=== PATIENT | female | born 1955 | race Caucasian/White ===

== ENCOUNTER 2022-11-21 06:33 | Outpatient (CLI) | payer MEDICARE, SELFPAY ==
--- NOTE | 2022-11-21 07:54 | W.ANESCHARGE ---
Anesthesia Charges Start Date/Time Anesthesia Start Date: 11/21/22 Anesthesia Start Time: 07:15 Stop Date/Time Anesthesia Stop Date: 11/21/22 Anesthesia Stop Time: 07:47
--- NOTE | 2022-11-21 10:20 | W.ANESCHARGE ---
Anesthesia Charges Start Date/Time Anesthesia Start Date: 11/21/22 Anesthesia Start Time: 07:15 Stop Date/Time Anesthesia Stop Date: 11/21/22 Anesthesia Stop Time: 07:47
== END 2022-11-21 06:34 | disposition home or self-care (01) ==
PROVIDERS: PCP Family Medicine; Visit Provider Internal Medicine Gastroenterology
DX: Z12.11 Encounter for screening for malignant neoplasm of colon (principal); K63.5 Polyp of colon; Z80.0 Family history of malignant neoplasm of digestive organs; Z86.010 Personal history of colon polyps
CPT/HCPCS: 00811; 45385; 88305; J2405; J2704

== ENCOUNTER 2023-05-01 07:30 | Outpatient (RCR) | payer MEDICARE, SELFPAY ==
--- NOTE | 2023-04-18 16:46 | PT.OPEX ---
PT [facility] PT [facility] Outpatient Eval Start: 04/18/23 16:13 Freq: Status: Active Protocol: Document 04/18/23 16:13 YANNI (Rec: 04/18/23 16:42 YANNI [id number]) E-signed By Gabby Ko DPT Physical Therapy Outpatient Evaluation Insurance Information Recert Due Date 07/17/23 Insurance Name Medicare B Medical Diagnosis cervicalgia polymyalgia rheumatica chronic pain Treating Diagnosis UBN pain, limited cervical ROM , impaired posture, limited tolerance for extended sitting activities, acute flare up of chronic UBN pain issues Subjective Subjective Patient reports chronic UBN pain for the last 30+ years with acute flare ups that are aggravated with extended sitting for reading, sewing, looking down positions. She reports years of fluctuating UBN pain, muscle tightness, and some headaches. States she had a cervical cyst removed approx 15 years ago. She had an MRI about 2 years ago and reports this showed abnormal curvature of her cervical spine. She's had PT previously but over 5 years ago. States she gets pain/sx relief with cervical traction, ROM, stretching, heating pad, icing, tylenol OA. She uses muscle relaxers with flare ups . Patient reports having a home cervical traction unit that she has been using 1-2x/ day, feels like she has been using it pretty regularly for the last 1 1/2 years. She's tried TENS treatment with PT in the past but does not have a home unit. States she lost her exercise handouts from prior PT and would like to get a new home program going. Her goal is to get some ROM/ stretching exercises, some pain management strategies and then continue on her own with a HEP. She is recovering from a recent flare up of pain /sx. Pain currently rated 2/ 10. Date of Last Physician Visit 03/29/23 Current Work Status Retired Precautions Treatment Precautions/Contraindications polymyalgia rheumatica, chronic UBN pain, cervical spine cyst surgically removed approx 15 years ago, per patient MRI shows abnormal curvature of cervical spine Assessment Assessment/Impression Patient is a 67 year old female with chronic UBN pain, limited cervical ROM, impaired posture, limited tolerance for extended sitting activities, acute flare up of chronic UBN pain issues. Per patient report, MRI a few years ago showed abnormal cervical spine curvature. Her cervical ROM is limited in all directions by general tightness, stiffness, pain. Patient with some hard end feels with cervical ROM, stating with her spine curvature her neck ROM is limited. Patient with tightness in bilateral UBN musculature, tight/stiff with scap mobility bilaterally. Impaired posture noted with forward head, rounded shoulders, uneven shoulder level related to abnormal spine curvature. She denies any UE radicular pain/sx. She is using a home cervical traction unit regularly to manage her chronic UBN pain/sx . Patient requesting ROM, stretching exercises and pain management strategies so she can continue with pain/sx management in her HEP. Discussed use of cervical traction and reviewed her prior use of TENS for pain/sx management. Recommended patient look into a home TENS unit as she reports this has been very helpful in the past but she never got a home unit. Reviewed with patient that pain/sx management with a home program to help prevent/ limited her flare ups would be important. Patient expressed understanding and is in agreement with this strategy of getting a good home program in place. Able to initiate HEP with ROM, stretching, posture focus this session. Patient to continue with use of cervical traction, ice, heat per her current pain management practice. She will look at getting a home TENS unit to add to her home management program. Patient has 2 follow up visits scheduled with goal of progressing with some TB strengthening exercises for her HEP. Patient states she will be traveling from June 03- July 05 so she is hoping to have a good program for pain/ sx management in place for her trip. Patient would benefit from skilled PT for pain/sx management, posture/body mechanics training, core/trunk /UBN strengthening, establishment of a HEP including self management strategies for her chronic UBN pain/sx. Plan of Care Rehabilitation Potential Good Physical Therapy Goals 1. Decrease/maintain mid/ upper back/neck pain at less than/equal to 3/10 with daily activities and with the progression of PT activities over the next 4-6 weeks. 2. Patient will be educated on posture/body mechanics and pain management strategies over the next 6-8 weeks for decreased stress on mid/upper back/neck and decreased mid/upper back/neck pain. 3. Improve core/trunk/UBN strength and posture over the next 10-12 weeks for improved posture, decreased stress on mid/upper back/neck, decreased mid/upper back/neck pain, and return to reading/ sewing activities with time constraints to avoid flare ups of pain/sx. 4. Patient will be I with HEP within 10 weeks for progression toward above goals, ongoing self management of pain/sx, ongoing self improvements in core/trunk/UBN strength, posture/body mechanics, and for return to her daily activities per PLF with limited/manageable flare ups of pain/sx. Coordination/Communication With Referral Source Treatment Plan/Direct Interventions Electrical Stimulation,Manual Therapy,Therapeutic Exercises Frequency/Duration 1x/week Patient Will Be Discharged From Therapy Completion of LTG(s),Skills Plateau,Independent w/HEP, Independently Progressing Evaluation Billing Untimed Code Treatment Minutes 22 Complexity Moderate Certification Information Initial Certification Date 04/18/23 Ending Certification Date 07/17/23 Provider Signature Shows Agreement With POC & Medical Necessity Physician Signature & Date Requested Please Sign/Date Here Physician Comment/Change : Physician NPI Number #
== END 2023-08-29 23:59 | disposition home or self-care (01) ==
PROVIDERS: PCP Family Medicine; Visit Provider Family Medicine
DX: M35.3 Polymyalgia rheumatica (principal); M54.2 Cervicalgia; G89.29 Other chronic pain; Z74.09 Other reduced mobility; R29.898 Other symptoms and signs involving the musculoskeletal system; R29.3 Abnormal posture; Z51.89 Encounter for other specified aftercare
CPT/HCPCS: 97110; 97162

== ENCOUNTER 2024-07-03 11:32 | Emergency (ER) | payer MEDICARE, SELFPAY ==
[2024-07-03] VITALS (26 sets, daily range): BP systolic 137–184; BP diastolic 72–97; PULSE 61–83; RESP 6–30; TEMP 36.5; O2SAT 97–100
--- OUTSIDE RECORDS SUMMARY | 2024-07-03 11:34 | XMS_ITS | Encounter Summary ---
Author Organization [facility] Address [address] [place] [id number] Care Team Providers Care Systems Support Engineer Name Role Phone Ching Wilson MD Primary Care Provider [phone] Encounter Details Date Type Department Care Team (Late st Contact Info) Description 08/29/2018 [facility] [address] [facility] [place] [address] Dudley Mckeon MD [address] [place] [address] [employer] [employer] Social History Tobacco Use Types Packs/Day Years Used Date Smoking Tobacco: Never Assessed Comments Unknown Sex and Gender Information Value Date Recorded Sex Assigned at Not on file Legal Sex Female 5:06 AM CDT Gender Identity Not on file Sexual Orientation Not on file documented as of this encounter Plan of Treatment Upcoming Encounters Date Type Department Care Team (Late st Contact Info) Description 07/10/2024 1:00 PM CDT Appointment Rheumatology at [facility] [address] [id number] Maritza Orlando MD [address] [place] [address] documented as of this encounter Visit Diagnoses Not on filedocumented in this encounter Care Teams Systems Support Engineer Relationship Specialty Start Date End Date Ching Wilson MD [address] [place] [address] PCP - General Family Practice 08/06/18 documented as of this encounter
--- OUTSIDE RECORDS SUMMARY | 2024-07-03 11:34 | XMS_ITS | Clinical Summary ---
Author Organization [facility] Address [address] [place] [address] Care Team Providers Care Customer Marketing Manager Name Role Phone Ching Wilson MD Primary Care Provide r Maritza Orlando MD Unavailable [phone] Allergies Active Allergy Reactions Criticality Noted Date Comments Amoxicillin-Pot Clavulanate Nausea Only,Itching High 04/19/2017 Sulfa (Sulfonamide Antibiotics) Rash 06/2006 Medications folic acid 1 mg tablet 2 Active methotrexate (RHEUMATREX) 2.5 mg tabletIndications: PMR (polymyalgia rheumatica) (HC) Take 4 tablets once a week. 0 3 Active valACYclovir (VALTREX) 500 mg tabletIndications: Herpes simplex virus (HSV) infection Take 1 Tablet (500 mg) by mouth once daily. 90 Tablet 3 4 Active levothyroxine (SYNTHROID) 100 mcg tabletIndications: Other specified hypothyroidism Take 1 Tablet (100 mcg) by mouth before breakfast. 90 Tablet 3 4 Active cyclobenzaprine (FLEXERIL) 10 mg tabletIndications: Acute neck pain Take 1 Tablet (10 mg) by mouth 3 times daily if needed for Muscle Spasm. 60 Tablet 5 Active oxyCODONE (ROXICODONE) 5 mg immediate release tabletIndications: Acute neck pain Take 1 Tablet (5 mg) by mouth 2 times daily if needed for Pain. 12 Tablet 5 Active azelaic acid 15 % gelIndications:Ros acea Apply topically to face twice daily. Start every 72 hours and slowly increase to twice daily as tolerated. 50 g 2 5 Active metroNIDAZOLE 0.75 % creamIndications:R osacea Apply topically to face twice daily. 45 g 2 5 Active sertraline (Zoloft) 50 mg tabletIndications: Adjustment disorder with depressed mood Take 1 Tablet (50 mg) by mouth once daily. 90 Tablet 3 5 Active Active Problems Problem Noted Date Diagnosed Date PMR (polymyalgia rheumatica) 03/14/2023 Rupture of implant of left breast 08/31/2018 Overview (07/11/2023): Added automatically from request for surgery [id number] Capsular contracture of breast implant 9 Overview (07/11/2023): Added automatically from request for surgery [id number] Rotator cuff impingement syndrome, right 018 Osteoarthritis of glenohumeral joint, left 12/25 Personal history of colonic polyps 09/28/2012 Overview (11/23/2022): Colonoscopy 09/2012 normal, repeat in 5 years Colonoscopy 09/2017 polyp, repeat in 5 years Colonoscopy 11/2022 TA, repeat in 5 years, propofol [facility] arthritis, thumb, degenerative 11/23/2011 Overview (11/23/2011): bilateral Carpal tunnel syndrome 01/07/2010 Cervical spinal stenosis 11/30/2009 Herpes simplex without mention of complication 1 03/10/2008 Displacement of cervical int ervertebral disc without myelopathy 03/28/2007 Unspecified hypothyroidism 07/25/2006 Rosacea 07/25/2006 Multiple sclerosis 07/25/2006 Overview (07/25/2006): Dr. Sanchez Encounters Date Type Department Care Team Description 07/03/2024 Nurse Triage [facility] [address] [place] [address] Ching Wilson MD Neurologic Problem 05/22/2024 Refill [facility] [address] [place] [address] Ching Wilson MD Refill Request (Azelaic Acid, Metronidazole) from Last 3 Months Immunizations Immunization Administration Dates Next Due AMB INFLUENZA IIV3 (AGE 65+ YRS) PF (Flu Clinic Only) 12/26/2018 AMB Influenza, IIV4 PF (=>6 mos Flulaval,Fluzone Fluarix)(Flu Clinic Only) 11/07/2013 Amb Influenza, Inactivated A IIV4 (Age 65+ Years) Preserv Free 11/18/2019 COVID-19 VACCINE SPIKEVAX (M ODERNA 50MCG/0.5ML) 12YO+ PFS 11/23/2022 COVID-19 vaccine (Pfizer-Bio NTech 30mcg/0.3mL) 12YO+ BIVALENT PF, MDV 07/14/2022,11/10/2021 COVID-19 vaccine (Pfizer-Bio NTech 30mcg/0.3mL) 12YO+ EFE-SUCROSE PF, MDV 05/24/2021 COVID-19 vaccine (Pfizer-Bio NTech 30mcg/0.3mL) PF, MDV 11/30/2020,04/24/2020,04/05/2020 DTaP 07/16/2010 HepA-HepB (Twinrix) 07/17/2009,02/10/2009,2008 Inactivated Polio Vaccine 01/23/2009 Influenza A (H1N1), Inactiva monika (Age >=3 Years) 01/23/2009 Influenza, IIV3 (Age >=3 years) 10/31/19 13,10/14/2011,11/16/2010,12/04,11/11/2008,12/31/2004,12/03/2002 Influenza, IIV4 02/02/2018,11/14/2016,11/10/2014 Influenza, Inactivated AIIV4 (Age 65+ Years) Preserv Free 11/23/2022,11/10/2021,11/30/2020 Influenza, Inactivated IIV3 (Age 65+ Years) Preserv Free 10/28/2023 Pneumococcal Conj 20-valent (Prevnar 20) 07/05/2022 Pneumococcal Poly,23-Valent (Pneumovax) 01/24/2020,10/09/2014,03/19/1999 RSV, Recombinant ADJ Reconst ituted (Arexvy 120MCG/0.5mL) 10/19/2023 Td (Age >=7 Years) 10/30/2016,02/07/2000 Tdap 11/09/2020,10/14/2011 Typhoid (injectable) 10/09/2014 Typhoid (oral) 01/23/2009 Yellow Fever 11/10/2014 Zoster (Shingrix-RZV, recombinant) 01/02/2023, Family History Medical History Relation Name Comments Cancer Brother 6 prostate, lymph nena, skin cancer (aggressive) Cancer-prostate Father Psychiatric illness Father Depressi on Cancer-breast Maternal Aunt Heart Disease Maternal Aunt Cancer-breast Mother 70's Osteoporosis Mother Other Mother , age 87 Psychiatric illness Mother Depressi on Cancer-breast Sister 1 Cancer-colon Sister 5 mid to late 50' s Osteoporosis Sister 6 Cancer-breast Sister 7 48 years old d iagnosed w stage 3 Relation Name Status Comments Brother 1 Alive Brother 2 Alive Brother 3 Alive Brother 4 Alive Brother 5 Alive Brother 6 Father Maternal Aunt Maternal Grandfather Maternal Grandmother Mother Alive Paternal Grandfather Paternal Grandmother Sister 1 Alive Sister 2 Alive Sister 3 Alive Sister 4 Alive Sister 5 Sister 6 Sister 7 Social History Tobacco Use Types Packs/Day Years Used Date Smoking Tobacco: Former Cigarettes 0.5 20 0 02/07/1972 - 02/07/1992 Smokeless Tobacco: Never Tobacco Cessation:Counseling Given: Yes Alcohol Use Standard Drinks/Week Comments Yes 3 (1 standard drink = 0.6 oz pur e alcohol) wine 3-4 times per week PHQ-2 Answer Date Recorded PHQ-2 TOTAL SCORE 4 05/22/2024 Social Connections Answer Date Recorded Do you often feel lonely or isolated from those around you? 0 07/11/2023 Financial Resource Strain Answer Date R ecorded Difficulty of Paying Living Expenses 3 07/11/2023 Difficulty of Paying Living Expenses Not on file 07/11/2023 Food Insecurity Answer Date Recorded Do you worry your food will run out before you are able to buy more? 1 07/11/2023 Transportation Needs Answer Date Record ed Does lack of transportation keep you from medica l appointments? 1 07/11/2023 Does lack of transportation keep you from work, meetings or getting things that you need? 1 07/11/2023 Housing Stability Answer Date Recorded What is your housing situation today? 1 07/11/2023 Utilities Answer Date Recorded Do you have trouble paying f or utilities (for example, heat, electricity, water, phone)? 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 Not on file Not on file Obstetrics History Para Term AB IAB SAB Ectopic Multiple Livin g Live Births 0 0 0 0 0 0 0 0 0 2 Last Filed Vital Signs Vital Sign Reading Time Taken Comments Blood Pressure 152/91 03/13/2024 9:16 AM ROLLER MILL TENDER Pulse 70 03/13/2024 9:16 AM ROLLER MILL TENDER Temperature 37.1 C (98.8 F) 07/11/2023 9:02 AM CDT Respiratory Rate 18 11/25/2019 5:27 PM CDT Oxygen Saturation 100% 03/13/2024 9:16 AM ROLLER MILL TENDER Inhaled Oxygen Concentration - - Weight 52.2 kg (115 lb) 12/08/2023 8:36 AM CDT Height 151.8 cm (4' 11.75) 12/08/2023 8:36 AM C DT Body Mass Index 22.65 12/08/2023 8:36 AM CDT Plan of Treatment Health Maintenance Due Date Last Done Comments COVID-19 vaccine series (9 - Pfizer risk season) 2024 10/28/2023, 11/23/2022, 07/14/2022, Additional history exists Mammogram for age 45-75 11/29/2024 11/30/19 24, 06/09/2022, 05/06/2021, Additional history exists BMI (ht and wt on same day) for age 18+ 12/07/2024 12/08/2023, 07/05/2022, 06/07/2021, Additional history exists Medicare Wellness for age 65+ 12/08/2024, 07/05/2022, 05/06/2021, Additional history exists Depression screening for age 12+ 05/22/2025 05/22/2024, 12/11/2023, 12/08/2023, Additional history exists Colonoscopy through age 75 11/22/202711/21, 11/21/2022, 09/11/2017, Additional history exists Lipids for age 45-75 12/07/2028 12/08/2023, 07/05/2022, 05/04/2020, Additional history exists Tetanus booster 11/09/2030 11/09/2020, 10/08, 10/14/2011, Additional history exists Hepatitis B series for 19+ Completed 07/17, 02/10/2009, 01/07/2009 Hepatitis C screening for ag e 18-79 Completed 06/28/2018 Tdap Completed 11/09/2020, 10/14/2011 DEXA/DXA scan for age 65+ Completed 2021, 02/26/2019, 10/18/2011, Additional history exists Pneumococcal series for age 50+ Completed 07/05/2022, 01/24/2020, 10/09/2014, Additional history exists Zoster (shingles) series for age 50+ Completed 01/02/2023, 09/15/2022 RSV vaccine for adults or Completed 10/19/2023 Influenza Vaccine Completed 10/28/2023, , 11/10/2021, Additional history exists Procedures Procedure Name Priority Date/Time Associated Diagnosis Comments LIPID PANEL W REFLEX MEASURED LDL Routine 12/08/2023 9:27 AM CDT Lipid screening XR MAMMO CAMERON BILAT SCREEN Routine 11/30/2023 7:59 AM CDT Encounter for screening mammogram for malignant neoplasm of breast SCAN-COLONOSCOPY 11/21/2022 12:0 0 AM CDT XR DXA BONE DENSITY 2 SITES AXIAL Routine 01/20/2022 9:50 AM ROLLER MILL TENDER Post-menopausal ANTI HCV Routine 06/28/2018 3:10 PM CDT Routine screening for STI (sexually transmitted infection) from Last 3 Months or Most Recently Relevant to Health Maintenance Results * (ABNORMAL) LIPID PANEL W REFLEX MEASURED LDL (12/08/2023 9:27 AM CDT) CHOLESTEROL, TOTAL 244(H) <200 mg/dL [facility] HDL CHOLESTEROL 87 > OR = 50 mg/dL [facility] TRIGLYCERIDES 110 <150 mg/dL [facility] LDL-CHOLESTEROL 135(H) mg/dL (calc) [facility] Comment: Reference range: <100 Desirable range <100 mg/dL for primary prevention; <70 mg/dL for patients with CHD or diabetic patients with > or = 2 CHD risk factors. LDL-C is now calculated using the Alfredo-Jing calculation, which is a validated novel method providing better accuracy than the Friedewald equation in the estimation of LDL-C. Alfredo SS et al. MATTHEW. 2013;310(19): 9917-5706 (http://education.GeniusMatcher/faq/UQL830) CHOL/HDLC RATIO 2.8 <5.0 (calc) [facility] NON HDL CHOLESTEROL 157(H) <130 mg/dL (calc) [facility] Comment: For patients with diabetes plus 1 major ASCVD risk factor, treating to a non-HDL-C goal of <100 mg/dL (LDL-C of <70 mg/dL) is considered a therapeutic option. Blood BLOOD SPECIMEN / Unknown 12/08/2023 9:27 AM CDT 12/08/2023 9:27 AM CDT us Ching Wilson MD CHEMISTRY Final Result [email or web address] [facility] [address] [place] [address], [facility] [address] [place] [address] * XR MAMMO CAMERON BILAT SCREEN (11/30/2023 7:59 AM CDT) Anatomical Region Laterality Modality BREASTS, Breast Left, Breast Right Bilateral Mammography Impressions 11/30/2023 3:43 PM CDT There is no radiographic evidence for malignancy. Recommend annual mammograms. MAMMOGRAM ASSESSMENT: ACR 1 Negative PATIENTS: You will also receive a letter with your examination results in an easy to read format. If you have questions about your results, please contact your referring provider. Narrative 11/30/2023 3:43 PM CDT For Patients: As a result of the Cures Act, medical imaging exams and procedure reports are released immediately into your electronic medical record. You may view this report before your referring provider. If you have questions, please contact your health care provider. XR MAMMO CAMERON BILAT SCREEN [[id number]] CLINICAL HISTORY: This is an asymptomatic 68 y.o. patient. INDICATION FOR EXAM: Mammogram Screening. TECHNIQUE: CC & MLO views were obtained. This study was evaluated with the assistance of Computer-Aided Detection. Breast Tomosynthesis was used in interpretation. COMPARISON FILM: Yes 06/09/22 [employer] 05/06/21 [facility] FINDINGS: There are scattered areas of fibroglandular density. There are no dominant masses, suspicious micro calcifications or areas of architectural distortion. Ching Wilson MD MAMMO Final Result * SCAN-COLONOSCOPY (11/21/2022 12:00 AM CDT) us [employer] OTHER Final Result * XR DXA BONE DENSITY 2 SITES AXIAL (01/20/2022 9:50 AM ROLLER MILL TENDER) Anatomical Region Laterality Modality Spine, HIPS, HIPL, HIPR Other Impressions 01/24/2022 4:38 PM ROLLER MILL TENDER Normal bone density. RECOMMENDATIONS: The National Osteoporosis Foundation recommends pharmacologic treatment for patients with T-scores of -2.5 or less, patients with prior history of fragility fractures, or patients with 10-year probability of greater than 3% at hips or greater than 20% of suffering major osteoporotic fractures. Recommend continued optimization of calcium and vitamin D intake through dietary means and/or supplementation and regular exercise. Repeat scan recommended in 3-5 years. Krista Smith PA-C [facility] 01/24/2022 Narrative 01/24/2022 4:38 PM ROLLER MILL TENDER For Patients: Results are automatically released to your [facility] account once available, in compliance with federal regulations. This means that you may see your results before your provider has had a chance to review them. Please allow 2-3 business days for your provider to comment on the results. XR DXA Bone Mineral Density (BMD) EXAM LOCATION: [address] [address] PATIENT NAME: Zelda Cortes DATE OF : 1955 EXAM DATE: 01/20/2022 REQUESTING PROVIDER: Referring, Provider GENDER AT : female HEIGHT: 5' (06/07/2021) WEIGHT: 111 lb (06/07/2021) MENOPAUSAL STATUS: Postmenopausal RACE/ETHNICITY: White RISK FACTORS: Smoking (prior), Steroid Medication (non-topical), Weight < 127 lbs. 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 It is not possible to compare data generated on one scanner to data from another because there are not standards in DXA equipment. This applies even if the two scanners are made by the same inventory clerk. PROCEDURE: Dual-energy x-ray absorptiometry performed with routine technique. Reporting is completed in the form of a T-score. The T-score represents the standard deviation from peak bone mass based on young healthy adult. A Z-score is used for diagnosis in premenopausal women, and for men under the age of 50. FINDINGS: RESULT LUMBAR SPINE L1 - L4 BMD: 1.308 g/cm2 T-Score: + 1.1 Z-Score: + 3.2 Change from prior in 2011: Decrease 17.3%. RESULTS FEMUR Left femoral neck BMD: 1.076 g/cm2 T-Score: + 0.3 Z-Score: + 2.2 Change from prior in 2020: Decrease 5.0%. Right femoral neck BMD: 1.080 g/cm2 T-Score: + 0.3 Z-Score: + 2.2 Change from prior in 2020: Decrease 8.2%. Left hip BMD: 1.083 g/cm2 T-Score: + 0.6 Z-Score: + 2.3 Change from prior in 2020: Decrease 7.0%. Right hip BMD: 1.091 g/cm2 T-Score: + 0.7 Z-Score: + 2.4 Change from prior in 2020: Decrease 7.9%. WHO criteria: Normal: T-score at or above -1 SD Osteopenia: T-score between -1.1 and -2.4 SD Osteoporosis: T-score at or below -2.5 SD us Provider Referring DEXA Final Result * ANTI HCV (06/28/2018 3:10 PM CDT) HEPATITIS C ANTIBODY Non-React rahel Non-React rahel 06/28/2018 8:31 PM CDT [facility] [employer] [facility] Comment:Antibodies to HCV no t detected; does not exclude the possibility of exposure to HCV. Blood BLOOD SPECIMEN / Unknown Venipuncture / Unknown 06/28/2018 3:10 PM CDT 06/28/2018 3:10 PM CDT us Ching Wilson MD SEND OUTS Final Result [facility] [employer] [facility] [address] [place] [address], from Last 3 Months or Most Recently Relevant to Health Maintenance Insurance MEDICARE PART B HB ONLY MEDICARE PART A HB ONLY BLUE [employer] BLUE MR PB ONLY Advance Directives * Full Code (Latest Code Status on File) Date Activated Date Inactivated Comments 12/22/2009 8:03 PM 12/23/2009 3:29 PM * Full Code Date Activated Date Inactivated Comments 12/22/2009 9:54 AM 12/22/2009 6:51 PM Care Teams Customer Marketing Manager Relationship Specialty Start Date End Date Ching Wilson MD [address] [place] [address] PCP - General 07/26/06 Maritza Orlando MD [address] [place] [address] Rheumatology 03/14/23
--- OUTSIDE RECORDS SUMMARY | 2024-07-03 11:35 | XMS_ITS | Encounter Summary ---
[facility] Organization [facility] Address [address] [place] [address] Care Team Providers Care Electric Meter Technician Name Role Phone Ching Wilson MD Primary Care Provider [phone] Encounter Details Date Type Department Care Team (Late st Contact Info) Description 11/02/2018 Consent for Procedure/Treatme nt [facility] Department INFORMED CONSENT RECORD Social History Tobacco Use Types Packs/Day Years Used Date Smoking Tobacco: Former Cigarettes Q uit: 10/17/1985 Smokeless Tobacco: Never Alcohol Use Standard Drinks/Week Comments Yes 0 (1 standard drink = 0.6 oz pur e alcohol) Comments Unknown Sex and Gender Information Value Date Recorded Sex Assigned at Not on file Legal Sex Female 5:06 AM CDT Gender Identity Not on file Sexual Orientation Not on file documented as of this encounter Plan of Treatment Upcoming Encounters Date Type Department Care Team (Late st Contact Info) Description 07/10/2024 1:00 PM CDT Appointment Rheumatology at [facility] [address] [id number] Maritza Orlando MD [address] [place] [address] documented as of this encounter Visit Diagnoses Not on filedocumented in this encounter Care Teams Electric Meter Technician Relationship Specialty Start Date End Date Ching Wilson MD [address] [place] [address] PCP - General Family Practice 08/06/18 documented as of this encounter
--- OUTSIDE RECORDS SUMMARY | 2024-07-03 11:35 | XMS_ITS | Clinical Summary ---
Author Organization [facility] Address [address] [place] [address] Care Team Providers Care Compliance Manager Name Role Phone Ching Wilson MD Primary Care Provider [phone] Source Comments You are receiving this document as you are listed as the primary care provider,follow-up provider, or the patient has been referred to you for consultation.This is in compliance with the Medicare andMedicaid EHR Incentive Program,which states Providers who transition their patient to another setting of careor provider of care or refers their patient to another provider of care shouldprovide summary care record for each transition of care or referral. Filement Allergies Active Allergy Reactions Criticality Noted Date Comments Amoxicillin-Pot Clavulanate Itching,Nausea High 04/06 Medications levothyroxine (SYNTHROID) 125 MCG tablet Take 1 Tablet (125 mcg) by mouth daily. Active valACYclovir (VALTREX) 500 MG tablet Take 1 Tablet (500 mg) by mouth. Active azelaic acid (FINACEA) 15 % gel Apply 1 Application topically daily. 3 Active metroNIDAZOLE (METROCREAM) 0.75 % cream Apply 1 g topically daily. Active folic acid 1 MG tablet Take 1 Tablet (1 mg) by mouth daily. 90 Tablet 3 4 09/06/19 25 Active methotrexate 2.5 MG tablet Take 4 tablets by mouth once weekly. 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 Overview (09/04/2023): DA reviewed: on MTX for PMR Polymyalgia rheumatica 09/04/2023 Capsular contracture of breast implant 9 Overview (08/31/2018): Added automatically from request for surgery [id number] Rupture of implant of left breast 08/31/2018 Overview (08/31/2018): Added automatically from request for surgery [id number] Encounters Date Type Department Care Team Description 05/09/2024 Refill Rheumatology at [address] [address] Maritza Orlando MD Refill (methotrexate 2.5 MG tablet [Pharmacy Med Name: Methotrexate Sodium 2.5mg Tablet]) 04/27/2024 Refill Rheumatology at [address] [address] Maritza Orlando MD Refill (methotrexate 2.5 MG tablet [Pharmacy Med Name: Methotrexate Sodium 2.5mg Tablet]) from Last 3 Months Social History Tobacco Use Types Packs/Day Years Used Date Smoking Tobacco: Former Cigarettes Q uit: 10/17/1985 Smokeless Tobacco: Never Alcohol Use Standard Drinks/Week Comments Yes 3 (1 standard drink = 0.6 oz pur e alcohol) Comments No Sex and Gender Information Value Date Recorded Sex Assigned at Not on file Legal Sex Female 5:06 AM CDT Gender Identity Not on file Sexual Orientation Not on file Last Filed Vital Signs Vital Sign Reading Time Taken Comments Blood Pressure 113/71 09/06/2023 9:32 AM CDT Pulse 78 09/06/2023 9:32 AM CDT Temperature 35.3 C (95.5 F) 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 Respiratory Rate 18 11/02/2018 3:30 PM CDT Oxygen Saturation 93% 11/02/2018 3:30 PM CDT Inhaled Oxygen Concentration - - Weight 50.8 kg (112 lb) 09/06/2023 9:32 AM CDT Height 151.1 cm (4' 11.5) 07/29/2021 12:55 PM C DT Body Mass Index 22.24 07/29/2021 12:55 PM CDT Plan of Treatment Upcoming Encounters Date Type Department Care Team (Late st Contact Info) Description 07/10/2024 1:00 PM CDT Appointment Rheumatology at [facility] [place] [address] [place] [address] [place] [address] Maritza Orlando MD [address] [place], [place] [id number] Health Maintenance Due Date Last Done Comments Colon Cancer Screening Plan Due 1955 Hep C Screening (Preventive Services) 1955 Cholesterol 1998 COVID-19 Vaccine ( season) 2023 11/23/2022, 07/14/2022, 11/10/2021, Additional history exists Mammogram 11/29/2024 11/30/2023, 05/2022, 05/06/2021, Additional history exists Medicare Annual Wellness Visit 12/07/2024 12/08/2023, 07/05/2022, 05/06/2021, Additional history exists RSV Vaccine (1 - 1-dose 75+ series) 2028 DTaP/Tdap/Td Vaccine (4 - Tdap) 11/09/2030 11/09/2020, 10/14/2011, 07/16/2010 IPV (Polio) Vaccine Aged Out 01/23/2009 No longe r eligible based on patient's age to complete this topic HepA Vaccine Aged Out 07/17/2009, 06/2009, 01/07/2009 No longer eligible based on patient's age to complete this topic Dexa Completed 01/20/2022, 01/06, 02/26/2019, Additional history exists Pneumococcal Vaccine 50+ Yrs Completed , 01/24/2020, 10/09/2014, Additional history exists Zoster/Shingles Vaccine Completed 01/02/2023, 09/15 Influenza Vaccine Completed 10/28/2023, , 11/10/2021, Additional history exists HepB Vaccine Aged Out No longer eligi ble based on patient's age to complete this topic Hib Vaccine Aged Out No longer eligi ble based on patient's age to complete this topic MCV4 Vaccine Aged Out No longer eligi ble based on patient's age to complete this topic Meningococcal B Vaccine Aged Out No l onger eligible based on patient's age to complete this topic Insurance [facility] BLUE MEDICARE MANAGED CARE [facility] Care Teams Compliance Manager Relationship Specialty Start Date End Date Ching Wilson MD [address] [place] [address] PCP - General Family Practice 08/06/18
--- NOTE | 2024-07-03 11:46 | CRLHL7_ITS ---
For Patients: As a result of the Century Cures Act, medical imaging exams and procedure reports are released immediately into your electronic medical record. You may view this report before your referring provider. If you have questions, please contact your health care provider. INDICATION: Acute stroke. TECHNIQUE: CTA neck with contrast bolus tracking, 3D angiographic rendering using maximum intensity projection (MIP) and images permanently archived. FINDINGS: There is no significant carotid artery stenosis or dissection. There is no significant vertebral artery stenosis or dissection. The soft tissues of the neck are within normal limits. Degenerative changes are noted in the cervical spine. IMPRESSION: No significant carotid or vertebral artery stenosis or dissection. Please note that all CT scans at this facility use dose modulation, iterative reconstruction, and/or weight-based dosing when appropriate to reduce radiation dose to as low as reasonably achievable. Dictated by Javan Hood MD @ 07/03/2024 1:51:54 PM (Electronically Signed)
--- NOTE | 2024-07-03 11:46 | CRLHL7_ITS ---
For Patients: As a result of the Century Cures Act, medical imaging exams and procedure reports are released immediately into your electronic medical record. You may view this report before your referring provider. If you have questions, please contact your health care provider. INDICATION: Acute stroke. TECHNIQUE: CTA head with contrast bolus tracking, 3D angiographic rendering using maximum intensity projection (MIP) and images permanently archived. FINDINGS: There is normal opacification of the intracranial vasculature. There is no large vessel occlusion. No aneurysm is identified. IMPRESSION: No acute intracranial abnormality at CTA. Please note that all CT scans at this facility use dose modulation, iterative reconstruction, and/or weight-based dosing when appropriate to reduce radiation dose to as low as reasonably achievable. Dictated by Javan Hood MD @ 07/03/2024 1:49:20 PM (Electronically Signed)
--- NOTE | 2024-07-03 11:46 | CRLHL7_ITS ---
For Patients: As a result of the Century Cures Act, medical imaging exams and procedure reports are released immediately into your electronic medical record. You may view this report before your referring provider. If you have questions, please contact your health care provider. Indication: Loss of words hard time completing sentences Technique: Volumetric multidetector CT images of the head were obtained without the administration of low osmolar intravenous contrast. Comparison: None available Findings: There is no intra-axial or extra-axial fluid collection. There is no mass effect or midline shift. There is age-related cortical atrophy with mild sulcal widening and ex vacuo dilatation of the lateral ventricles. There are chronic small vessel disease changes in the subcortical and periventricular white matter without lost calderon-white differentiation. The orbits and their contents are grossly within normal limits. The bony calvarium is grossly intact. The paranasal sinuses are clear. The mastoid air cells are well aerated. Impression: 1. Age-related changes of the brain without acute intracranial abnormality. A negative head report was sent to Dr. Eloise Brian at 12:10 p.m. July 03, 20[address] Please note that all CT scans at this facility use dose modulation, iterative reconstruction, and/or weight-based dosing when appropriate to reduce radiation dose to as low as reasonably achievable. Dictated by Dougie Quinonez MD @ 07/03/2024 12:13:11 PM (Electronically Signed)
--- NOTE | 2024-07-03 11:53 | ED.GENADULT ---
HPI - General Adult General Chief complaint: Neuro Symptoms/Altered Deficit Stated complaint: possible stroke- Time Seen by Provider: 07/03/24 11:33 Source: patient and family Mode of arrival: ambulatory Limitations: no limitations History of Present Illness HPI narrative: 68-year-old female presenting today with altered mental status. 45 minutes prior to presenting patient had an acute and sudden change in her mentation. She became acutely confused. She became unable to name her dog, say where she was, name her . She became very tearful and scared. Seems to have some word-finding difficulty according to her . She has had an upper respiratory infection for the last 2 weeks which includes a cough. No recent travel. Appetite has been normal. Related Data Home Medications ?Medication ?Instructions ?Recorded ?Confirmed levothyroxine 100 mcg tablet 100 mcg PO DAILY 03/29/23 07/03/24 methotrexate sodium 2.5 mg tablet 10 mg PO .weekly 03/29/23 07/03/24 sertraline 50 mg tablet 50 mg PO DAILY 03/29/23 07/03/24 valacyclovir 500 mg tablet 500 mg PO DAILY 03/29/23 07/03/24 Previous Rx's ?Medication ?Instructions ?Recorded cyclobenzaprine 5 mg tablet 5 - 10 mg (1 - 2 x 5 mg) PO BID 03/29/23 PRN muscle spasm #30 tabs Allergies Allergy/AdvReac Type Severity Reaction Status Date / Time clavulanic acid (From Allergy Intermediate nausea, Verified 07/03/24 12:43 Augmentin) itching Sulfa (Sulfonamide Allergy Intermediate Rash Verified 07/03/24 12:43 Antibiotics) amoxicillin Allergy nausea, Verified 07/03/24 12:43 itching Review of Systems Status of ROS: Reports: 10 or more systems reviewed and unremarkable except as noted in History and below [facility] Social History Smoking Status: Former smoker Do you use any of these nicotine containing products: None Second hand tobacco smoke exposure: No Non-prescribed substance use: denies use Exam Narrative: Exam Narrative: Well-nourished well-developed patient, tearful. Not oriented to person, place or time - when I asked her the date or where she was she says I'm supposed to know but I do not. No tangential or magical thinking noted. Patient speaks in full sentences without needing to catch her breath. There is no word-finding difficulty, no word salad, no garbled speech. HEENT: Normocephalic atraumatic. Pupils are equally round reactive to light. Extraocular muscles are intact. Conjunctivae are moist without any icterus noted. Moist mucous membranes. Posterior pharynx is normal. Neck is soft without any lymphadenopathy or thyromegaly. No masses are appreciated. Face is symmetric. Tongue is midline. Cardiovascular: Heart is regular rate and rhythm S1 and S2 are present without any murmurs. Lungs: Clear to auscultation bilaterally no wheezes rhonchi or rales are appreciated. Patient takes deep breaths without any discomfort. Abdomen: Soft and nontender nondistended with normal bowel sounds. Extremities: Bilateral lower extremities are without edema. Skin: Well perfused without any obvious rashes. Strength is 5/5 of the upper extremities- both proximal and distal muscle groups. 4/5 of the right lower extremity, 5/5 of the left lower extremity but effort appears diminished when testing the lower extremities. Reflexes are 2+ and symmetric at the knees. Cranial nerves 3-12 are normal. There is no nystagmus either horizontally or vertically. Gait is normal. 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 Const: Vital Signs, click to edit/add: Vital Signs - 24 hr 07/03/24 11:33 07/03/24 11:35 07/03/24 12:09 Temperature 97.7 F Pulse Rate 66 Pulse Rate [Pulse Oximeter] 83 Respiratory Rate 18 Blood Pressure Blood Pressure [Ri ght Upper Arm] 184/97 H Pulse Oximetry 99 99 100 Oxygen Delivery Me thod Room Air 07/03/24 12:10 07/03/24 12:15 07/03/24 12:17 Temperature Pulse Rate 68 65 66 Pulse Rate [Pulse Oximeter] Respiratory Rate Blood Pressure 162/77 H 139/77 Blood Pressure [Ri ght Upper Arm] Pulse Oximetry 99 98 98 Oxygen Delivery Me thod 07/03/24 12:30 07/03/24 12:31 07/03/24 12:45 Temperature Pulse Rate 69 72 70 Pulse Rate [Pulse Oximeter] Respiratory Rate 6 L Blood Pressure 153/82 H Blood Pressure [Ri ght Upper Arm] Pulse Oximetry 98 99 100 Oxygen Delivery Nv thod 07/03/24 12:46 07/03/24 12:47 07/03/24 13:00 Temperature Pulse Rate 73 70 73 Pulse Rate [Pulse Oximeter] Respiratory Rate 7 L 14 18 Blood Pressure 137/72 Blood Pressure [Ri ght Upper Arm] Pulse Oximetry 98 98 97 Oxygen Delivery Me thod 07/03/24 13:01 07/03/24 13:15 07/03/24 13:16 Temperature Pulse Rate 71 71 75 Pulse Rate [Pulse Oximeter] Respiratory Rate 14 14 14 Blood Pressure 139/77 138/81 Blood Pressure [Ri ght Upper Arm] Pulse Oximetry 98 97 98 Oxygen Delivery Nv thod Course Course ED Course: Differential includes anxiety, transient global amnesia, stroke. Patient went to CT immediately after examination. Dr. Chow, stroke neurology at [place], was consulted. He recommended initial stroke workup with head CT followed by head and neck CTA. He also recommends an MRI to make sure that there are no abnormalities in the [facility]. However he does believe that this is likely and anxiety episode. POC glucose 129. EKG, read by me, shows normal sinus rhythm with a pulse of 62. Normal QRS, QTC and IL intervals. Lab work unremarkable. UA is normal. Initial head CT, read by me, did not show any acute pathology. Head and neck CTA both unremarkable. MRI brain unremarkable. Discussed results with Dr. White who felt the changes that were discussed on the report were old and not related to today's symptoms. Approximately 1 hour after arrival patient started clearing. She did receive a dose of IV Ativan. By the time that the workup was done, patient was back to her baseline. Vital Signs Vital signs: Initial Vital Signs Temperature 97.7 F 07/03/24 11:33 Temperature Source Temporal Artery Scan 07/03/24 11:33 Pulse Rate 83 07/03/24 11:33 Respiratory Rate 18 07/03/24 11:33 Blood Pressure 184/97 H 07/03/24 11:33 Blood Pressure Mean 126 H 07/03/24 11:33 Blood Pressure Position Sitting 07/03/24 11:33 Pulse Oximetry 99 07/03/24 11:33 Oxygen Delivery Method Room Air 07/03/24 11:33 Vital Signs Temperature 97.7 F 07/03/24 11:33 Pulse Rate 83 07/03/24 11:33 Respiratory Rate 18 07/03/24 11:33 Blood Pressure 184/97 H 07/03/24 11:33 Pulse Oximetry 99 07/03/24 11:33 Oxygen Delivery Method Room Air 07/03/24 11:33 Temperature 97.7 F 07/03/24 11:33 Pulse Rate 75 07/03/24 13:16 Respiratory Rate 14 07/03/24 13:16 Blood Pressure 138/81 07/03/24 13:16 Pulse Oximetry 98 07/03/24 13:16 Oxygen Delivery Method Room Air 07/03/24 11:33 Medications Administered Medications: Discontinued Medications Generic Name Dose Route Start Last Admin Trade Name Aris PRN Reason Stop Dose Admin Acetaminophen 1,000 mg 07/03/24 14:37 07/03/24 14:43 Acetaminophen 500 Mg Tablet PO 07/03/24 14:38 1,000 mg ONCE ONE Administration Lorazepam 0.5 mg 07/03/24 12:14 07/03/24 12:33 Lorazepam 2 Mg/Ml Inj IVP 07/03/24 12:15 0.5 mg ONCE ONE Administration Medical Decision Making [facility] Narrative Medical decision making narrative: 68-year-old female with transient episode of amnesia likely anxiety versus transient global amnesia. No evidence of stroke, TIA unlikely given her symptoms. Lab Data Lab results reviewed: Yes I reviewed the patient's lab results Labs: Lab Results 07/03/24 07/03/24 07/03/24 Range/Units 11:46 12:00 13:55 WBC 5.55 (4.50-11.00) K/uL RBC 3.79 L (4.00-5.20) m/uL Hgb 13.6 (12.0-16.0) gm/dL Hct 39.9 (33.0-51.0) % MCV 105 H (80-100) fL MCH 36 H (26-34) pg MCHC 34 (32-36) gm/dL RDW Coeff of Marisela 11.9 (11.5-15.5) % Plt Count 277 (140-440) K/uL Neut % (Auto) 55.7 (42.0-72.0) % Lymph % (Auto) 32.1 (20-44) % [place] % (Auto) 9.5 (0.0-11.0) % Eos % (Auto) 1.8 (0.0-7.0) % Baso % (Auto) 0.7 (0.0-3.0) % Neut # (Auto) 3.09 (1.7-7.0) K/uL Lymph # (Auto) 1.78 (0.90-2.90) K/uL Hinds # (Auto) 0.50 (0.00-0.90) K/UL Eos # (Auto) 0.10 (0.00-0.50) K/uL Baso # (Auto) 0.04 (0.00-0.30) K/uL Abs Immat Gran (auto) 0.01 (0.00-0.30) K/uL Imm/Tot Granulo (auto) 0.2 % Diff Slide Review Acceptable Review (Acceptable) Sodium 135 (135-149) mmol/L Potassium 3.8 (3.6-5.1) mmol/L Chloride 102 (96-114) mmol/L Carbon Dioxide 26 (20-32) mmol/L Anion Gap 7 (7-15) mEq/L BUN 12 (7-30) mg/dL Creatinine 0.6 (0.5-1.5) mg/dL Estimated GFR 97 ml/min Glucose 123 H (60-115) mg/dL Lactate 1.1 (0.5-1.9) mmol/L Calcium 8.8 (8.4-10.6) mg/dL Magnesium 1.9 (1.5-2.6) mg/dL Total Bilirubin 0.7 (0.1-1.5) mg/dL Direct Bilirubin 0.2 (0.0-0.5) mg/dL AST 24 (12-35) U/L ALT 14 (4-35) U/L Alkaline Phosphatase 64 (40-150) U/L Troponin I < 0.01 (0.01-0.04) ng/mL C-Reactive Protein 0.6 (0.5-1.0) mg/dL Total Protein 6.2 (6.0-8.3) g/dL Albumin 3.9 (3.3-5.0) g/dL TSH 1.900 (0.270-4.20) uIU/mL Urine Color Yellow (Yellow) Urine Appearance Clear (Clear) Urine pH 7.0 (5.0-8.5) Ur Specific [place] 1.010 (1.000-1.030) Urine Protein Negative (Negative) Urine Glucose (UA) Negative (Negative) Urine Ketones Negative (Negative) Urine Blood Negative (Negative) Urine Nitrite Negative (Negative) Urine Bilirubin Negative (Negative) Urine Urobilinogen 0.2 (0.2-1.0) Ur Leukocyte Esterase Negative (Negative) Urine RBC 0-2 (0-2) Urine WBC 0-2 (0-5) Ur Squamous Epith Cells None (None-Few) Urine Bacteria None (None) Salicylates < 1.0 L (1.0-10) mg/dL Urine Opiates Screen Negative (Negative) Ur Oxycodone Screen Negative (Negative) Urine Methadone Screen Negative (Negative) Acetaminophen < 10.0 (10.0-30.0) ug/mL Ur Barbiturates Screen Negative (Negative) U Tricyclic Antidepress Negative (Negative) Ur Phencyclidine Scrn Negative (Negative) Ur Amphetamines Screen Negative (Negative) U Methamphetamines Scrn Negative (Negative) U Benzodiazepines Scrn Negative (Negative) Urine Cocaine Screen Negative (Negative) U Marijuana (THC) Screen Negative (Negative) Ur Drug Screen Comment See Note Ethyl Alcohol < 0.01 (0.01-0.03) % Imaging Data CT scan - head: Attestation: I have reviewed the pertinent imaging results. Radiologist's impression: Technique: Volumetric multidetector CT images of the head were obtained without the administration of low osmolar intravenous contrast. Comparison: None available Findings: There is no intra-axial or extra-axial fluid collection. There is no mass effect or midline shift. There is age-related cortical atrophy with mild sulcal widening and ex vacuo dilatation of the lateral ventricles. There are chronic small vessel disease changes in the subcortical and periventricular white matter without lost calderon-white differentiation. The orbits and their contents are grossly within normal limits. The bony calvarium is grossly intact. The paranasal sinuses are clear. The mastoid air cells are well aerated. Impression: 1. Age-related changes of the brain without acute intracranial abnormality. Head CTA: Attestation: I have reviewed the pertinent imaging results. Radiologist's impression: TECHNIQUE: CTA head with contrast bolus tracking, 3D angiographic rendering using maximum intensity projection (MIP) and images permanently archived. FINDINGS: There is normal opacification of the intracranial vasculature. There is no large vessel occlusion. No aneurysm is identified. IMPRESSION: No acute intracranial abnormality at CTA. Neck CTA: Attestation: I have reviewed the pertinent imaging results. Radiologist's impression: TECHNIQUE: CTA neck with contrast bolus tracking, 3D angiographic rendering using maximum intensity projection (MIP) and images permanently archived. FINDINGS: There is no significant carotid artery stenosis or dissection. There is no significant vertebral artery stenosis or dissection. The soft tissues of the neck are within normal limits. Degenerative changes are noted in the cervical spine. IMPRESSION: No significant carotid or vertebral artery stenosis or dissection. MR Brain: Attestation: I have reviewed the pertinent imaging results. Radiologist's impression: TECHNIQUE: Brain MRI without contrast. COMPARISON: Head CT from 07/03/2024. FINDINGS: No evidence of acute ischemia. No evidence of acute or chronic intracranial blood products. Oval FLAIR hyperintense lesion in right frontal centrum semiovale. A few punctate FLAIR hyperintense foci scattered within the supratentorial white matter elsewhere. No mass effect or herniation. No hydrocephalus or extra-axial collections. The pituitary gland, parasellar structures and optic chiasm are normal. Posterior fossa is normal. All the major intracranial vascular structures demonstrate normal flow-related signal. The orbital contents are normal. No calvarial or skull base marrow replacing process. No obstructive sinus disease. No extracranial soft tissue findings. IMPRESSION: 1. No acute infarction or other acute intracranial pathology. 2. Oval FLAIR hyperintense lesion within the right frontal centrum semiovale. This could reflect a demyelinating/inflammatory focus or site of small-vessel ischemic change. A few additional punctate FLAIR hyperintensities within the supratentorial white matter elsewhere, typical for chronic microvascular ischemic change. ECG Data Attestation: I personally reviewed and interpreted this ECG as follows: Discharge Plan Discharge Clinical Impression: Transient memory loss Patient Disposition: Home, Self-Care Condition: Improved Additional Instructions: No evidence of stroke on your workup today. No evidence of infection. Follow-up with your primary care provider as needed. Prescriptions: No Action levothyroxine 100 mcg tablet 100 mcg PO DAILY sertraline 50 mg tablet 50 mg PO DAILY valacyclovir 500 mg tablet 500 mg PO DAILY methotrexate sodium 2.5 mg tablet 10 mg PO .weekly cyclobenzaprine 5 mg tablet 5 - 10 mg PO BID PRN (Reason: muscle spasm) Qty: 30 0RF Follow Up/Referrals: Ching Wilson MD [Primary Care Provider, Family Practice] Stand Alone Forms: MyHealth Info Instructions
[2024-07-03 12:13] LABS: Basophils Absolute Auto 0.04 K/uL (0.00-0.30); Basophils Percent Auto 0.7 % (0.0-3.0); Eosinophils Percent Auto 1.8 % (0.0-7.0); Hematocrit 39.9 % (33.0-51.0); Hemoglobin* 13.6 gm/dL (12.0-16.0); Immature Granulocytes Abs Auto 0.01 K/uL (0.00-0.30); Immature Granulocytes Pct Auto 0.2 %; Lactate* 1.1 mmol/L (0.5-1.9); Lymphocytes Absolute Auto 1.78 K/uL (0.90-2.90); Lymphocytes Percent Auto 32.1 % (20-44); Mean Corpuscular HGB Conc 34 gm/dL (32-36); Mean Corpuscular Hemoglobin 36 pg (26-34); Mean Corpuscular Volume 105 fL (80-100); Monocytes Percent Auto 9.5 % (0.0-11.0); Neutrophils Absolute Auto 3.09 K/uL (1.7-7.0); Neutrophils Percent Auto 55.7 % (42.0-72.0); Platelet Count* 277 K/uL (140-440); RDW Coefficient of Variation % 11.9 % (11.5-15.5); Red Blood Count 3.79 m/uL (4.00-5.20); White Blood Count* 5.55 K/uL (4.50-11.00)
--- NOTE | 2024-07-03 12:14 | CRLHL7_ITS ---
For Patients: As a result of the Century Cures Act, medical imaging exams and procedure reports are released immediately into your electronic medical record. You may view this report before your referring provider. If you have questions, please contact your health care provider. INDICATION: Neurologic defect. TECHNIQUE: Brain MRI without contrast. COMPARISON: Head CT from 07/03/2024. FINDINGS: No evidence of acute ischemia. No evidence of acute or chronic intracranial blood products. Oval FLAIR hyperintense lesion in right frontal centrum semiovale. A few punctate FLAIR hyperintense foci scattered within the supratentorial white matter elsewhere. No mass effect or herniation. No hydrocephalus or extra-axial collections. The pituitary gland, parasellar structures and optic chiasm are normal. Posterior fossa is normal. All the major intracranial vascular structures demonstrate normal flow-related signal. The orbital contents are normal. No calvarial or skull base marrow replacing process. No obstructive sinus disease. No extracranial soft tissue findings. IMPRESSION: 1. No acute infarction or other acute intracranial pathology. 2. Oval FLAIR hyperintense lesion within the right frontal centrum semiovale. This could reflect a demyelinating/inflammatory focus or site of small-vessel ischemic change. A few additional punctate FLAIR hyperintensities within the supratentorial white matter elsewhere, typical for chronic microvascular ischemic change. Dictated by Dany Grande MD @ 07/03/2024 2:25:27 PM (Electronically Signed)
[2024-07-03 12:16] LABS: Slide Review Reflex Yes
[2024-07-03 12:27] LABS: Albumin* 3.9 g/dL (3.3-5.0); Chloride* 102 mmol/L (96-114); Sodium* 135 mmol/L (135-149)
[2024-07-03 12:28] LABS: Potassium* 3.8 mmol/L (3.6-5.1)
[2024-07-03 12:29] LABS: Blood Urea Nitrogen* 12 mg/dL (7-30); Creatinine* 0.6 mg/dL (0.5-1.5); Estimated Glomerular Filt Rate 97 ml/min
[2024-07-03 12:30] LABS: Alanine Aminotransferase* 14 U/L (4-35); Alkaline Phosphatase* 64 U/L (40-150); Anion Gap 7 mEq/L (7-15); Aspartate Amino Transferase* 24 U/L (12-35); Bilirubin Direct* 0.2 mg/dL (0.0-0.5); Bilirubin Total* 0.7 mg/dL (0.1-1.5); Calcium* 8.8 mg/dL (8.4-10.6); Carbon Dioxide* 26 mmol/L (20-32); Glucose* 123 mg/dL (60-115); Magnesium* 1.9 mg/dL (1.5-2.6); Total Protein* 6.2 g/dL (6.0-8.3)
[2024-07-03 12:32] LABS: Acetaminophen* < 10.0 ug/mL (10.0-30.0); Ethanol* < 0.01 % (0.01-0.03); Salicylate* < 1.0 mg/dL (1.0-10)
[2024-07-03 12:33] LABS: C Reactive Protein* 0.6 mg/dL (0.5-1.0)
[2024-07-03] MEDS: LORazepam 2 MG/ML inj 0.5 MG IVP (12:33)
[2024-07-03 12:44] LABS: Troponin I* < 0.01 ng/mL (0.01-0.04)
[2024-07-03 12:59] LABS: Slide Review Acceptable Review (Acceptable)
[2024-07-03 14:16] LABS: Appearance Urine Clear (Clear); Bilirubin Urine Negative (Negative); Blood Urine Negative (Negative); Color Urine Yellow (Yellow); Glucose Urine Negative (Negative); Ketones Urine Negative (Negative); Leukocyte Esterase Urine Negative (Negative); Nitrite Urine Negative (Negative); Protein Urine Negative (Negative); Urobilinogen Urine 0.2 (0.2-1.0)
[2024-07-03 14:27] LABS: Amphetamine Screen Urine Negative (Negative); Barbiturate Screen Urine Negative (Negative); Benzodiazepines Screen Urine Negative (Negative); Cannabinoid Screen Urine Negative (Negative); Cocaine Screen Urine Negative (Negative); Methadone Screen Urine Negative (Negative); Methamphetamines Screen Urine Negative (Negative); Opiate Screen Urine Negative (Negative); Oxycodone Screen Urine Negative (Negative); Phencyclidine Screen Urine Negative (Negative); Tricyclic Antidepressant Urine Negative (Negative)
[2024-07-03] MEDS: ACETAMINOPHEN 500 MG TABLET 1000 MG PO (14:43)
[2024-07-03 14:47] LABS: RBC Urine 0-2 (0-2); WBC Urine 0-2 (0-5)
== END 2024-07-03 15:33 | disposition home or self-care (01) ==
PROVIDERS: Emergency Provider Family Medicine; PCP Family Medicine
DX: G45.4 Transient global amnesia (principal); R05.9 Cough, unspecified
CPT/HCPCS: 36415; 70450; 70496; 70498; 70551; 80048; 80076; 80143; 80179; 80306; 81001; 82077; 83605; 83735; 84443; 84484; 85025; 86140; 87086; 93005; 94761; 96374; 99284; 99285; A9270; J2060; Q9967